=== PATIENT | male | born 1950 | race Caucasian/White ===

== ENCOUNTER 2019-08-22 09:17 | Inpatient (IN) | payer MEDICARE ==
[2019-08-22] VITALS (14 sets, daily range): BP systolic 110–139; BP diastolic 68–91
[~2019-08-22] VITALS: Ht 172.7 cm; Wt 104.0 kg
[2019-08-22 09:47] LABS: BASOPHILS % (AUTO) 0.2 % (0-1); EOSINOPHILS % (AUTO) 0.1 % (0-6); HEMOGLOBIN 15.3 g/dl (14.0-17.9); LYMPHOCYTES # (AUTO) 0.4 X10'3 (1.1-4.8); LYMPHOCYTES % (AUTO) 4.7 % (21-51); MEAN CORPUSCULAR HEMOGLOBIN 30.6 PG (27.0-31.0); MEAN CORPUSCULAR HGB CONC 34.7 g/dL (33.0-36.5); MEAN CORPUSCULAR VOLUME 88.3 FL (78-98); MEAN PLATELET VOLUME 8.2 FL (7.4-10.4); MONOCYTES # (AUTO) 0.3 X10'3 (0-0.9); MONOCYTES % (AUTO) 3.2 % (2-12); NEUTROPHILS # (AUTO) 8.8 X10'3 (1.8-7.7); NEUTROPHILS % (AUTO) 91.8 % (42-75); PLATELET COUNT 164 X10'3 (140-440); RED BLOOD COUNT 4.99 X10'6 (4.70-6.10); RED CELL DISTRIBUTION WIDTH 13.9 % (11.5-14.5); WHITE BLOOD COUNT 9.6 X10'3 (4.5-11.0)
[2019-08-22] MEDS ORDERED: MULT1TAB74 PO (09:51)
[2019-08-22 10:17] LABS: ALBUMIN 3.6 G/DL (3.4-5.0); ANION GAP 8 (8-16); BILIRUBIN,TOTAL 0.3 MG/DL (0.1-1.0); BLOOD UREA NITROGEN 20 MG/DL (7-18); BUN/CREATININE RATIO 22.7 (5.4-32.0); CALCIUM 8.9 MG/DL (8.5-10.1); CHLORIDE 105 MMOL/L (99-107); CREATININE 0.88 MG/DL (0.60-1.10); GLUCOSE 145 MG/DL (70-104); POTASSIUM 3.8 MMOL/L (3.5-5.1); SODIUM 140 MMOL/L (135-145); TOTAL CARBON DIOXIDE 27.1 MMOL/L (24-32); TOTAL PROTEIN 7.4 G/DL (6.4-8.2); eGFR 86 ML/MIN
[2019-08-22 10:18] LABS: ALANINE AMINOTRANSFERASE 28 U/L (12-78); ALBUMIN/GLOBULIN RATIO 0.9 (1.1-1.5); ALKALINE PHOSPHATASE 84 IU/L (46-116); ASPARTATE AMINO TRANSFERASE 22 U/L (10-37)
[2019-08-22 10:27] LABS: MAGNESIUM 1.8 MG/DL (1.5-2.4)
[2019-08-22 10:43] LABS: LIPASE 218 U/L (73-393)
[2019-08-22] MEDS ORDERED: acetaminophen 325mg tablet PO PRN ×2 (12:40)
[2019-08-22] MEDS ORDERED: acetaminophen 650mg rectal suppository RC PRN (12:40)
[2019-08-22] MEDS ORDERED: bisacodyl 10mg suppository rectal RC PRN (12:40)
[2019-08-22] MEDS ORDERED: magnesium 2GM in 50ml NS 50 ML IV PRN (12:40)
[2019-08-22] MEDS ORDERED: diphenhydrAMINE 50 mg/ml inj IV PRN (12:40)
[2019-08-22] MEDS ORDERED: HYDROcodone/acetaminophen 10/325mg tab PO PRN (12:40)
[2019-08-22] MEDS ORDERED: HYDROcodone/acetaminophen 5mg/325mg tablet PO PRN (12:40)
[2019-08-22] MEDS ORDERED: HYDROmorphone inj. 0.5 MG/0.5 ML DISP.SYRIN IV PRN (12:40)
[2019-08-22] MEDS ORDERED: mag hydrox/Alum hydrox/simeth 30ml oral suspension PO PRN (12:40)
[2019-08-22] MEDS ORDERED: magnesium hydroxide 30ml (MOM) UD suspension PO PRN (12:40)
[2019-08-22] MEDS ORDERED: magnesium Cl slow-release 64mg tablet PO PRN (12:40)
[2019-08-22] MEDS ORDERED: metoclopramide 5 mg/ml inj IV PRN (12:40)
[2019-08-22] MEDS ORDERED: HYDROmorphone 1 mg/ml syringe IV PRN (12:40)
[2019-08-22] MEDS ORDERED: potassium CL 10mEq/100ml bag 100 ML IV PRN ×2 (12:40)
[2019-08-22] MEDS ORDERED: ondansetron/PF 4mg/2ml inj IV PRN ×2 (12:40→16:45)
[2019-08-22] MEDS ORDERED: diphenhydrAMINE 25mg capsule PO PRN (12:40)
[2019-08-22] MEDS ORDERED: potassium Cl 20 mEq SR tablet PO PRN ×2 (12:40)
[2019-08-22] MEDS ORDERED: magnesium 4gm in 100ml NS 100 ML IV PRN (12:40)
[2019-08-22] MEDS: normal saline 1000ml 1,000 ML IV SCH ×2 (13:47→18:38)
--- NOTE | 2019-08-22 13:55 | NUR ---
annette nurse in speaking with pt, dr kim was in to see pt as well
[2019-08-22] MEDS ORDERED: FLU VACC QS2019-20 36MOS UP/PF 60 MCG/0.5 ML SYRINGE IMVAC ONE (14:05)
[2019-08-22] MEDS ORDERED: pneumococcal 23-VAL P-sac vacc 25 mcg/0.5ml vial IMVAC ONE (14:05)
[2019-08-22] MEDS ORDERED: INDOCYANINE GREEN 25 MG VIAL IV ONE (14:30)
[2019-08-22] MEDS ORDERED: naloxone 0.4 mg/ml inj ONE (16:02)
[2019-08-22] MEDS ORDERED: sevoflurane 250ml liquid IH ONE (16:02)
[2019-08-22] MEDS ORDERED: BUPIVAcaine/PF 2.5 mg/ml (0.25%) 30ml vial ONE (16:07)
[2019-08-22] MEDS ORDERED: LIDOcaine 1% 30ml preserv. free vial ONE (16:07)
[2019-08-22] MEDS ORDERED: midazolam 2 mg/2 ml injection ONE (16:08)
[2019-08-22] MEDS ORDERED: fentaNYL /PF 50mcg/ml 5ml ampule ONE (16:09)
[2019-08-22] MEDS ORDERED: ceFAZolin 1000mg inj ONE ×2 (16:18)
[2019-08-22] MEDS ORDERED: rocuronium 10mg/ml inj IV ONE (16:19)
[2019-08-22] MEDS ORDERED: propofol inj 20 ML IV ONE (16:19)
[2019-08-22] MEDS ORDERED: LIDOcaine 2% (20mg/ml) 5ml vial ONE (16:19)
[2019-08-22] MEDS ORDERED: morphine 4 MG/ML inj SYRINge IV PRN ×2 (16:45)
[2019-08-22] MEDS ORDERED: proCHLORperazine 10 MG/2 ml inj IV PRN (16:45)
[2019-08-22] MEDS ORDERED: ringers solution, lacted 1,000 ML IV SCH (16:45)
[2019-08-22] MEDS ORDERED: meperidine/PF 25mg/ml syringe IV PRN ×3 (16:45)
[2019-08-22] MEDS ORDERED: sugammadex 200mg/2ml injection IV ONE (17:27)
[2019-08-22] MEDS ORDERED: flumazenil 0.1 mg/ml inj. IV ONE (17:33)
[2019-08-22] MEDS ORDERED: ceFOXitin 1000 MG inj ONE (17:33)
[2019-08-22] MEDS ORDERED: glycopyrrolate 0.2mg/ml inj ONE (17:33)
[2019-08-22] MEDS ORDERED: ondansetron/PF 4mg/2ml inj ONE (17:33)
[2019-08-22] MEDS ORDERED: dexamethasone sod phosphate 4mg/ml inj. ONE (17:33)
[2019-08-22] MEDS ORDERED: neostigmine methylsulfate 1 MG/ML 10ml vial ONE (17:33)
--- NOTE | 2019-08-22 17:40 | NUR ---
Received from OR via BED , accompanied by Anesthesiologist DR MATA and report given by Anesthesiolgist. PATIENT WAKING UP, DENIES PAIN, V/S WNL, NEUROVASCULAR CHECKS INTACT, 20G PIV RUE, SCD ON, BANDAIDS TO LAP SIGHTS OF ABDOMEN CDI.
[2019-08-22] MEDS ORDERED: ipratropium/albuterol 3ml nebule IH ONE (17:45)
[2019-08-22] MEDS ORDERED: albuterol 2.5 MG/3 ML nebule ONE (17:49)
--- NOTE | 2019-08-22 18:15 | NUR ---
Patient in room [facility]. I have received report from MARYJANE Mason and had the opportunity to ask questions and assume patient care.
--- NOTE | 2019-08-22 18:30 | NUR ---
Pt back from Recovery room. Patient alert and oriented, VSS
--- NOTE | 2019-08-22 18:30 | NUR ---
PATIENT A&OX4, DENIES PAIN, V/S WNL, NEUROVASCULAR CHECKS INTACT, 20G PIV RUE, SCD ON, BANDAIDS TO LAP SIGHTS OF ABDOMEN CDI. TELE AND PULSE OX ON PATIENT, PATIENT TAKEN TO 349A WITH ALL BELONGINGS AND HOOKED UP TO MONITORS IN ROOM AND REPORT GIVEN TO RN WHO HAS TAKEN OVER PATIENT CARE.
--- NOTE | 2019-08-22 18:55 | NUR ---
SHIFT CHANGE NOTE; Problems reprioritized. Patient report given, questions answered & plan of care reviewed with MARYJANE POWERS.
[2019-08-22] MEDS ORDERED: temazepam 15mg capsule PO PRN (21:00)
[2019-08-23] VITALS: BP 116/70
[2019-08-23] MEDS: normal saline 1000ml 1,000 ML IV SCH (04:33)
[2019-08-23 05:00] VITALS: BP 129/84
[2019-08-23 06:28] LABS: ALANINE AMINOTRANSFERASE 28 U/L (12-78); ALBUMIN/GLOBULIN RATIO 0.9 (1.1-1.5); ANION GAP 8 (8-16); ASPARTATE AMINO TRANSFERASE 26 U/L (10-37); BILIRUBIN,TOTAL 0.5 MG/DL (0.1-1.0); BLOOD UREA NITROGEN 13 MG/DL (7-18); BUN/CREATININE RATIO 14.9 (5.4-32.0); CALCIUM 8.4 MG/DL (8.5-10.1); CHLORIDE 107 MMOL/L (99-107); CHOL/HDL RATIO 3.7 (0.00-4.99); CHOLESTEROL 157 MG/DL (0-200); CREATININE 0.87 MG/DL (0.60-1.10); GLUCOSE 122 MG/DL (70-104); HDL CHOLESTEROL 43 MG/DL (35-60); LDL CHOLESTEROL 104 MG/DL (50-100); MAGNESIUM 2.3 MG/DL (1.5-2.4); POTASSIUM 4.3 MMOL/L (3.5-5.1); SODIUM 140 MMOL/L (135-145); TOTAL CARBON DIOXIDE 25.3 MMOL/L (24-32); TOTAL PROTEIN 6.5 G/DL (6.4-8.2); TRIGLYCERIDES 105 MG/DL (20-135); eGFR 88 ML/MIN
[2019-08-23 06:38] LABS: BASOPHILS % (AUTO) 0 % (0-1); EOSINOPHILS % (AUTO) 0 % (0-6); HEMOGLOBIN 14.4 g/dl (14.0-17.9); LYMPHOCYTES # (AUTO) 0.6 X10'3 (1.1-4.8); MEAN CORPUSCULAR HEMOGLOBIN 30.3 PG (27.0-31.0); MEAN CORPUSCULAR HGB CONC 34.3 g/dL (33.0-36.5); MEAN CORPUSCULAR VOLUME 88.2 FL (78-98); MEAN PLATELET VOLUME 8.5 FL (7.4-10.4); MONOCYTES # (AUTO) 0.4 X10'3 (0-0.9); MONOCYTES % (AUTO) 4.1 % (2-12); NEUTROPHILS # (AUTO) 9.5 X10'3 (1.8-7.7); NEUTROPHILS % (AUTO) 89.9 % (42-75); PLATELET COUNT 169 X10'3 (140-440); RED BLOOD COUNT 4.76 X10'6 (4.70-6.10); RED CELL DISTRIBUTION WIDTH 14.4 % (11.5-14.5); WHITE BLOOD COUNT 10.5 X10'3 (4.5-11.0)
[2019-08-23 06:42] LABS: ALKALINE PHOSPHATASE 61 IU/L (46-116)
--- NOTE | 2019-08-23 06:43 | NUR ---
Problems reprioritized. Patient report given, questions answered & plan of care reviewed with MARYJANE Khan.
--- NOTE | 2019-08-23 06:45 | NUR ---
Patient in room [facility]. I have received report from Tayler WESLEY and had the opportunity to ask questions and assume patient care.
[2019-08-23 07:00] VITALS: BP 137/88
[2019-08-23] MEDS ORDERED: K and/or MAG REPLACEMENT MC SCH (08:00)
--- NOTE | 2019-08-23 09:03 | NUR ---
Dr. Guerrier made rounds, received order to advance diet to regular and that he will discharge the patient today. Per charge nurse Lashonda, Dr. Guerrier is aware about patient having bowel sounds and not passing gas yet at this time. Per Lashonda, Dr. Guerrier will write the discharge order.
[2019-08-23] MEDS ORDERED: FLU VACC QS2019-20 36MOS UP/PF 60 MCG/0.5 ML SYRINGE IMVAC ONE (10:00)
[2019-08-23] MEDS ORDERED: pneumococcal 23-VAL P-sac vacc 25 mcg/0.5ml vial IMVAC ONE (10:00)
--- NOTE | 2019-08-23 10:10 | NUR ---
Discharge instructions given to patient, patient verbalized understanding of all instructions made. Peripheral IV catheter removed, tip intact. Instructed patient to ensure he has all belongings with him before leaving the hospital including his valuables stored in the safe. Patient awaiting for his ride coming from [facility].
[2019-08-23 11:00] VITALS: BP 122/79
--- NOTE | 2019-08-23 13:32 | NUR ---
Patient ate his regular diet lunch, tolerated well. Patient dressed up awaiting for the ride
--- NOTE | 2019-08-23 13:45 | NUR ---
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
== END 2019-08-23 13:45 | disposition home or self-care (01) | DRG 419 ==
LOC: ER 09:18 → ED HOLD 12:37 → SUR 3N 14:15
PROVIDERS: ADMIT Family Medicine; ATTEND Family Medicine
PROC: 8E0W4CZ Robotic Assisted Procedure of Trunk Region, Percutaneous Endoscopic Approach (ICD-10-PCS; 2019-08-22)
PROC: 0FT44ZZ Resection of Gallbladder, Percutaneous Endoscopic Approach (ICD-10-PCS; principal; 2019-08-22 16:02)
DX: K80.00 Calculus of gallbladder with acute cholecystitis without obstruction (principal); E66.01 Morbid (severe) obesity due to excess calories; G47.30 Sleep apnea, unspecified; Z85.820 Personal history of malignant melanoma of skin; Z68.34 Body mass index [BMI] 34.0-34.9, adult; Z28.21 Immunization not carried out because of patient refusal; Z79.899 Other long term (current) drug therapy
CPT/HCPCS: 36415; 74176; 76700; 80053; 80061; 82948; 83690; 83735; 83880; 84484; 85025; 87081; 88304; 90732; 93005; 93306; 94640; 99285; A4215; A4618; A7000; C9399; G0378; J0690; J0694; J1100; J2001; J2250; J2310; J2405; J2704; J2710; J3010; J3490; J7030; J7120; Q2037